=== PATIENT | female | born 1970 | race Caucasian/White ===

== ENCOUNTER 2018-02-08 19:19 | Emergency (ER) | payer SELFPAY ==
[2018-02-08] MEDS ORDERED: LORazepam 0.5 MG TABLET PO STA (19:58)
[2018-02-08] MEDS ORDERED: HYDROcod/ACETAM 5/325 MG TABLET PO STA (19:58)
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
[2018-02-08] MEDS ORDERED: LIDOCAINE VISCOUS 2% 15 ML UDC MM STA (20:09)
[2018-02-08] MEDS ORDERED: MAG HYDROX/AL HYDROX/SIMETH 30 ML UDC PO STA (20:09)
--- NOTE | 2018-02-08 20:29 | XRAY Preliminary Report ---
Exam: XR KNEE 4 VIEW LT IMPRESSION: Normal knee radiography. [facility] SITE ID: [id number]
--- NOTE | 2018-02-08 20:46 | XRAY Report ---
EXAM: LEFT KNEE RADIOGRAPHY EXAM DATE: 02/08/2018 08:19 PM. CLINICAL HISTORY: Knee injury. COMPARISON: None. TECHNIQUE: 4 views. FINDINGS: Bones: Normal. No fractures or bone lesions. Joints: Normal. No effusion. No subluxations. Soft Tissues: Normal. No soft tissue swelling. IMPRESSION: Normal knee radiography. [facility] Referring Provider Line: [phone] SITE ID: [id number]
[2018-02-08 20:53] VITALS: BP 116/64
== END 2018-02-08 21:40 | disposition home or self-care (01) ==
LOC: ED 19:19
DX: S80.02XA Contusion of left knee, initial encounter (principal); S09.93XA Unspecified injury of face, initial encounter; Y09 Assault by unspecified means
CPT/HCPCS: 73564; 99283; A9270

== ENCOUNTER 2019-08-01 23:20 | Emergency (ER) | payer OTHER ==
--- NOTE | 2019-08-01 23:42 | ED Physician Documentation ---
PD HPI CHEST PAIN - Stated complaint Stated Complaint: CHEST PRESSURE/SOA/FAST HEART - Chief complaint Chief Complaint: Cardiac - History obtained from History obtained from: Patient - History of Present Illness Timing - onset: How many days ago (2-3 days, episodic but increasing frequency and persistence, and now has been constant all day today) Timing - details: Gradual onset, Waxing and waning Pain level now: 3 Quality: Pressure Location: Substernal Radiation: Other (does not radiate) Improved by: Nothing Worsened by: Other (no exacerbating factors) Associated symptoms: Diaphoresis, Nausea. No: Shortness of air, Feeling faint / dizzy, General Weakness Similar symptoms before: Has not had sx before Recently seen: Not recently seen - Additional information Additional information: c/o "tingling sensation in my chest", chest pressure "like an elephant sitting on my chest", burning midline low midline chest pain, feeling "feverish and flushed", generalized headache, dry cough. She has had these symptoms intermittently for 2-3 days with increasing frequency and persistence, and today has had these symptoms all day. She regularly uses a vape pen with marijuana and today she read the news stories about patients who vape having ARDS and infectious complications and she became very anxious and concerned that this was happening to her. She uses the marijuana to treat Rheumatoid arthritis, as she prefers to not take prescription medications Review of Systems Constitutional: reports: Myalgias, Sweats. denies: Fever ("feverish", but has not taken temperature at home), Chills Cardiac: reports: Chest pain / pressure, Palpitations. denies: Pedal edema, Calf pain Respiratory: reports: Dyspnea, Cough (mild, occasional dry cough). denies: Hemoptysis, Wheezing GI: reports: Nausea. denies: Abdominal Pain, Vomiting : denies: Dysuria, Frequency Musculoskeletal: denies: Extremity swelling Neurologic: reports: Headache. denies: Generalized weakness, Focal weakness, Numbness PD PAST MEDICAL HISTORY - Past Medical History Past Medical History: Yes Other Past Medical History: rheumatoid arthritis - Past Surgical History HEENT: Tonsil/Adenoidectomy - Present Medications Home Medications: Ambulatory Orders Medication Instructions Recorded Confirmed Lidocaine HCl [Lidocaine HCl 10 ml MM Q4H PRN #120 ml 02/08/18 08/01/19 Viscous] - Allergies Allergies/Adverse Reactions: Allergies Allergy/AdvReac Type Severity Reaction Status Date / Time No Known Drug Allergies Allergy Verified 08/01/19 23:33 - Social History Does the pt smoke?: No Smoking Status: Never smoker Does the pt drink ETOH?: Yes Substance Use and Type: Marijuana PD ED PE NORMAL - Vitals Vital signs reviewed: Yes - General General: Alert and oriented X 3, Well developed/nourished, Other (appears anxious, pacing next to stretcher. She is polite and articulate, cooperative.) - HEENT HEENT: PERRL, EOMI, Moist mucous membranes - Neck Neck: Supple, no meningeal sign - Cardiac Cardiac: No murmur - Respiratory Respiratory: No respiratory distress, Clear bilaterally - Abdomen Abdomen: Soft, Non tender - Derm Derm: Normal color, Warm and dry - Extremities Extremities: No edema - Neuro Neuro: Alert and oriented X 3 PD ED PE EXPANDED - Cardiac Cardiac: Tachy, Regular Rhythm Results - Vitals Vitals: Vital Signs - 24 hr 08/01/19 08/02/19 08/02/19 23:26 00:53 02:01 Temperature 36.7 C Heart Rate 144 H 84 67 Respiratory 18 15 14 Rate Blood Pressure 150/89 H 114/83 H 105/69 O2 Saturation 100 98 97 08/02/19 02:30 Temperature 36.8 C Heart Rate Respiratory Rate Blood Pressure O2 Saturation Oxygen O2 Source Room air - EKG (time done) No standard instances Rate: Rate (enter#) (127) Rhythm: NSR, LAE Jackson: Normal Intervals: Normal DC QRS: Normal Ischemia: Q waves (II, III, aVF, V4-V6), Non specific changes (inferior leads and V4-V6) #2 Rate: Rate (enter#) (76) Rhythm: NSR Jackson: Normal Intervals: Normal DC QRS: Normal Ischemia: Normal ST segments, Q waves (small (1-2mm) Q waves II, III, aVF, V4- V6) - Labs Labs: Laboratory Tests 08/01/19 08/01/19 08/01/19 23:55 23:55 23:55 WBC 9.7 RBC 4.52 Hgb 13.7 Hct 41.2 MCV 91.2 MCH 30.3 MCHC 33.3 RDW 12.0 Plt Count 347 MPV 10.5 Neut # (Auto) 8.0 H Lymph # (Auto) 1.2 L [place] # (Auto) 0.4 Eos # (Auto) 0.1 Baso # (Auto) 0.0 Absolute Nucleated RBC 0.00 Nucleated RBC % 0.0 D-Dimer Sodium 144 Potassium 3.4 L Chloride 106 Carbon Dioxide 27 Anion Gap 11.0 BUN 15 Creatinine 0.7 Estimated GFR (MDRD) 89 Glucose 138 H Calcium 9.8 Total Bilirubin 0.6 AST 28 ALT 23 Alkaline Phosphatase 54 Troponin I High Sens 2.5 B-Natriuretic Peptide Total Protein 8.4 H Albumin 4.9 Globulin 3.5 Albumin/Globulin Ratio 1.4 Lipase 33 08/01/19 08/01/19 23:55 23:55 WBC RBC Hgb Hct MCV MCH MCHC RDW Plt Count MPV Neut # (Auto) Lymph # (Auto) [place] # (Auto) Eos # (Auto) Baso # (Auto) Absolute Nucleated RBC Nucleated RBC % D-Dimer 204.3 Sodium Potassium Chloride Carbon Dioxide Anion Gap BUN Creatinine Estimated GFR (MDRD) Glucose Calcium Total Bilirubin AST ALT Alkaline Phosphatase Troponin I High Sens B-Natriuretic Peptide 11 Total Protein Albumin Globulin Albumin/Globulin Ratio Lipase - Rads (name of study) chest xray Radiology: Prelim report reviewed, See rad report PD MEDICAL DECISION MAKING - ED course Complexity details: reviewed results, re-evaluated patient, considered differential, d/w patient ED course: patient's symptoms gradually resolved, along with her tachycardia and the appearance of anxiousness, during ED stay. IV lorazepam was given with repeat dose and good effect. Departure - Departure Disposition: 01 Home, Self Care Clinical Impression: Chest pain Qualifiers: Chest pain type: unspecified Qualified Code(s): R07.9 - Chest pain, unspecified Condition: Good Instructions: ED Chest Pain Atypical Unkn Cause, ED Chest Pain Pleurisy Discharge Date/Time: 08/02/19 02:30
[2019-08-01] MEDS ORDERED: LORazepam 2 MG/ML VIAL IVP STA (23:56)
[2019-08-02 00:07] LABS: BASOPHILS % (AUTO) 0.3 %; EOSINOPHILS # (AUTO) 0.1 10^3/uL (0.0-0.7); EOSINOPHILS % (AUTO) 0.6 %; HGB - HEMOGLOBIN 13.7 g/dL (12.0-16.0); LYMPHOCYTES # (AUTO) 1.2 10^3/uL (1.5-3.5); LYMPHOCYTES % (AUTO) 12.4 %; MEAN CORPUSCULAR HEMOGLOBIN 30.3 pg (27.0-31.0); MEAN CORPUSCULAR HGB CONC 33.3 g/dL (32.0-36.0); MEAN CORPUSCULAR VOLUME 91.2 fL (81.0-99.0); MEAN PLATELET VOLUME 10.5 fL (7.9-10.8); MONOCYTES # (AUTO) 0.4 10^3/uL (0.0-1.0); NEUTROPHILS % (AUTO) 82.3 %; PLT - PLATELET COUNT 347 10^3/uL (130-450); RED BLOOD COUNT 4.52 10^6/uL (4.20-5.40); WHITE BLOOD COUNT 9.7 x10^3/uL (4.8-10.8)
[2019-08-02] MEDS ORDERED: LORazepam 2 MG/ML VIAL IVP STA (00:30)
[2019-08-02 00:32] LABS: ALBUMIN 4.9 g/dL (3.2-5.5); ALBUMIN/GLOBULIN RATIO 1.4 (1.0-2.2); BILIRUBIN,TOTAL 0.6 mg/dL (0.2-1.0); CALCIUM 9.8 mg/dL (8.5-10.3); CREATININE 0.7 mg/dL (0.4-1.0); TOTAL PROTEIN 8.4 g/dL (6.7-8.2)
--- NOTE | 2019-08-02 00:36 | XRAY Report ---
Reason: chest pain, dyspnea Procedure Date: 08/02/2019 Accession Number: [id number] / [id number] Procedure: XR - Chest 2 View X-Ray CPT Code: 38339 FULL RESULT: EXAM: CHEST RADIOGRAPHY EXAM DATE: 08/02/2019 12:13 AM. CLINICAL HISTORY: Chest pain, dyspnea. COMPARISON: None. TECHNIQUE: 2 views. FINDINGS: Lungs/Pleura: No focal opacities evident. No pleural effusion. No pneumothorax. Normal volumes. Mediastinum: Heart and mediastinal contours are unremarkable. Other: None. IMPRESSION: 1. No acute abnormality seen in the chest. [facility]
[2019-08-02 02:02] VITALS: BP 105/69
== END 2019-08-02 02:30 | disposition home or self-care (01) ==
LOC: ED 23:20
DX: R07.9 Chest pain, unspecified (principal); R00.0 Tachycardia, unspecified; F41.9 Anxiety disorder, unspecified; F12.90 Cannabis use, unspecified, uncomplicated; M06.9 Rheumatoid arthritis, unspecified
CPT/HCPCS: 36415; 71046; 80053; 83690; 83880; 84484; 85025; 85379; 93005; 96374; 96376; 99284; J2060